=== PATIENT | male | born 1995 | race Hispanic/Latino ===

== ENCOUNTER 2018-02-17 07:59 | Emergency (ER) | payer SELFPAY ==
[2018-02-17] MEDS ORDERED: IBUPROFEN 400 MG TAB ONE (09:12)
--- NOTE | 2018-02-17 10:32 | ER ---
Nurse's Notes [facility] Name: Casper Lee Age: 22 yrs Sex: Male : 1995 Arrival Date: 02/17/2018 Time: 08:02 Bed 19 Private MD: Diagnosis: Pain in left hand Presentation: 02/17 08:07 Presenting complaint: Patient states: L hand pain that began yesterday. No known ss injury. Transition of care: patient was not received from another setting of care. Onset of symptoms was February 16, 2018. Risk Assessment: Do you want to hurt yourself or someone else? Patient reports no desire to harm self or others. Initial Sepsis Screen: Does the patient meet any 2 criteria? No. Patient's initial sepsis screen is negative. Does the patient have a suspected source of infection? No. Patient's initial sepsis screen is negative. Care prior to arrival: None. 08:07 Method Of Arrival: Ambulatory ss 08:07 Acuity: DARLENE 4 ss Historical: - Allergies: 08:10 No Known Allergies; ss - Home Meds: 08:10 None [Active]; ss - PMHx: 08:10 None; ss - PSHx: 08:10 None; ss - Immunization history:: Adult Immunizations unknown. - Social history:: Smoking status: Patient uses tobacco products, smokes one-half pack cigarettes per day. - Ebola Screening: : Patient denies exposure to infectious person Patient denies travel to an Ebola-affected area in the 21 days before illness onset. Screenin:00 Abuse screen: Denies threats or abuse. Nutritional screening: No deficits noted. em Tuberculosis screening: No symptoms or risk factors identified. Fall Risk None identified. Assessment: 09:00 General: Appears in no apparent distress. comfortable, Behavior is calm, cooperative, em Denies fever. Pain: Complains of pain in medial aspect of left hand Pain currently is 6 out of 10 on a pain scale. Neuro: Level of Consciousness is awake, alert, obeys commands, Oriented to person, place, time, situation. Cardiovascular: Capillary refill < 3 seconds Patient's skin is warm and dry. Respiratory: Airway is patent Respiratory effort is even, unlabored, Respiratory pattern is regular, symmetrical. Derm: Skin is intact, is healthy with good turgor, Skin is pink, warm \T\ dry. Musculoskeletal: Range of motion: intact in MCP of left little finger Swelling absent. Vital Signs: 08:10 BP 146 / 105; Pulse 61; Resp 16; Temp 97.6(TE); Pulse Ox 99% on R/A; Weight 86.18 kg; ss Height 6 ft. 2 in. (187.96 cm); Pain 7/10; 08:10 BP 154 / 113; Pulse 62; ss 10:15 BP 130 / 91; Pulse 67; Resp 16; Pulse Ox 99% on R/A; Pain 2/10; em 08:10 Body Mass Index 24.39 (86.18 kg, 187.96 cm) ED Course: 08:02 Patient arrived in ED. as 08:09 Triage completed. ss 08:10 Arm band placed on right wrist. ss 08:44 Neema Chauhan FNP-C is PHCP. kb 08:44 Sony Knox MD is Attending Physician. kb 09:00 Romain Oshea LVN is Primary Nurse. em 09:00 Patient has correct armband on for positive identification. Bed in low position. Call em light in reach. Side rails up X2. Adult w/ patient. Pulse ox on. NIBP on. 09:47 Hand Left 3 View In Process Unspecified. EDMS 10:40 No provider procedures requiring assistance completed. Patient did not have IV access em during this emergency room visit. Administered Medications: 09:05 Drug: Ibuprofen 800 mg Route: PO; em 10:27 Follow up: Response: No adverse reaction; Pain is decreased em Outcome: 10:31 Discharge ordered by MD. kb 10:40 Discharged to home ambulatory, with family. em 10:40 Condition: good 10:40 Discharge instructions given to patient, Instructed on discharge instructions, follow up and referral plans. Demonstrated understanding of instructions, follow-up care, Prescriptions given X 1. 10:41 Patient left the ED. em Signatures: Dispatcher [employer] EDMS Neema Chauhan FNP-C FNP-Ckb Munoz, Edgar, LVN LVN em Sonia Hammond Shelby, RN RN ss
--- NOTE | 2018-02-17 10:32 | EDPHYS ---
Physician Documentation [facility] Name: Casper Lee Age: 22 yrs Sex: Male : 1995 Arrival Date: 02/17/2018 Time: 08:02 Bed 19 Private MD: ED Physician Sony Knox HPI: 02/17 09:13 This 22 yrs old Male presents to ER via Ambulatory with complaints of Hand kb Pain. 09:13 The patient or guardian reports pain. The complaints affect the medial aspect of left kb hand. Context: The problem was sustained at home, resulted from an unknown cause. Onset: The symptoms/episode began/occurred 2 day(s) ago. Modifying factors: The symptoms are alleviated by nothing, the symptoms are aggravated by nothing. Associated signs and symptoms: The patient has no apparent associated signs or symptoms. Severity of symptoms: At their worst the symptoms were moderate, in the emergency department the symptoms are unchanged. The patient has not experienced similar symptoms in the past. The patient has not recently seen a physician. Historical: - Allergies: 08:10 No Known Allergies; ss - Home Meds: 08:10 None [Active]; ss - PMHx: 08:10 None; ss - PSHx: 08:10 None; ss - Immunization history:: Adult Immunizations unknown. - Social history:: Smoking status: Patient uses tobacco products, smokes one-half pack cigarettes per day. - Ebola Screening: : Patient denies exposure to infectious person Patient denies travel to an Ebola-affected area in the 21 days before illness onset. ROS: 09:12 Constitutional: Negative for fever, chills, and weight loss, Cardiovascular: Negative kb for chest pain, palpitations, and edema, Respiratory: Negative for shortness of breath, cough, wheezing, and pleuritic chest pain, Abdomen/GI: Negative for abdominal pain, nausea, vomiting, diarrhea, and constipation, Skin: Negative for injury, rash, and discoloration, Neuro: Negative for headache, weakness, numbness, tingling, and seizure. 09:12 MS/extremity: Positive for pain, tenderness, of the left hand. Exam: 09:12 Constitutional: This is a well developed, well nourished patient who is awake, alert, kb and in no acute distress. Head/Face: Normocephalic, atraumatic. Neck: Trachea midline, no thyromegaly or masses palpated, and no cervical lymphadenopathy. Supple, full range of motion without nuchal rigidity, or vertebral point tenderness. No Meningismus. Chest/axilla: Normal chest wall appearance and motion. Nontender with no deformity. No lesions are appreciated. Cardiovascular: Regular rate and rhythm with a normal S1 and S2. No gallops, murmurs, or rubs. Normal PMI, no JVD. No pulse deficits. Respiratory: Lungs have equal breath sounds bilaterally, clear to auscultation and percussion. No rales, rhonchi or wheezes noted. No increased work of breathing, no retractions or nasal flaring. Abdomen/GI: Soft, non-tender, with normal bowel sounds. No distension or tympany. No guarding or rebound. No evidence of tenderness throughout. Skin: Warm, dry with normal turgor. Normal color with no rashes, no lesions, and no evidence of cellulitis. MS/ Extremity: Pulses equal, no cyanosis. Neurovascular intact. Full, normal range of motion. Neuro: Awake and alert, GCS 15, oriented to person, place, time, and situation. Cranial nerves II-XII grossly intact. Motor strength 5/5 in all extremities. Sensory grossly intact. Cerebellar exam normal. Normal gait. Vital Signs: 08:10 BP 146 / 105; Pulse 61; Resp 16; Temp 97.6(TE); Pulse Ox 99% on R/A; Weight 86.18 kg; ss Height 6 ft. 2 in. (187.96 cm); Pain 7/10; 08:10 BP 154 / 113; Pulse 62; ss 10:15 BP 130 / 91; Pulse 67; Resp 16; Pulse Ox 99% on R/A; Pain 2/10; em 08:10 Body Mass Index 24.39 (86.18 kg, 187.96 cm) ss MDM: 08:44 Patient medically screened. kb 09:12 Data reviewed: vital signs, nurses notes. Data interpreted: Pulse oximetry: on room air kb is 99 %. Interpretation: normal. Counseling: I had a detailed discussion with the patient and/or guardian regarding: the historical points, exam findings, and any diagnostic results supporting the discharge/admit diagnosis, radiology results, the need for outpatient follow up, a hand specialist, to return to the emergency department if symptoms worsen or persist or if there are any questions or concerns that arise at home. 02/17 09:26 Order name: Hand Left 3 View; Complete Time: 11:26 [facility] Administered Medications: 09:05 Drug: Ibuprofen 800 mg Route: PO; em 10:27 Follow up: Response: No adverse reaction; Pain is decreased em Disposition: 17:21 Co-signature as Attending Physician, Sony Knox MD. Disposition: 02/17/18 10:31 Discharged to Home. Impression: Pain in left hand. - Condition is Stable. - Discharge Instructions: Musculoskeletal Pain. - Prescriptions for Diclofenac Sodium 75 mg Oral Tablet, Delayed Release (E.C.) - take 1 tablet by ORAL route 2 times per day As needed; 30 tablet. - Medication Reconciliation Form, Thank You Letter, Antibiotic Education, Prescription Opioid Use form. - Follow up: Emergency Department; When: As needed; Reason: Worsening of condition. Follow up: Private Physician; When: 2 - 3 days; Reason: Recheck today's complaints, Continuance of care, Re-evaluation by your physician. Signatures: Dispatcher [employer] [facility] Neema Chauhan, TRACKLESS TROLLEY DRIVER-C TRACKLESS TROLLEY DRIVER-CkRomain Saavedra, FIRE ALARM DISPATCHER FIRE ALARM DISPATCHER Lynda Prajapati RN RN ss Starr, Gregory, MD MD Corrections: (The following items were deleted from the chart) 09:47 09:41 Hand Left 3 View+RAD.RAD.BRZ ordered. [facility] 10:41 10:31 02/17/2018 10:31 Discharged to Home. Impression: Pain in left hand. Condition is em Stable. Forms are Medication Reconciliation Form, Thank You Letter, Antibiotic Education, Prescription Opioid Use. Follow up: Emergency Department; When: As needed; Reason: Worsening of condition. Follow up: Private Physician; When: 2 - 3 days; Reason: Recheck today's complaints, Continuance of care, Re-evaluation by your physician. kb
--- NOTE | 2018-02-17 11:19 | RAD REPORT ---
EXAM DESCRIPTION: RAD - Hand Left 3 View - 02/17/2018 9:47 am CLINICAL HISTORY: Nontraumatic, nonfocal hand pain COMPARISON: December 2013 FINDINGS: No fracture, dislocation or periosteal reaction noted. No foreign body or other soft tissu e abnormality. Slight cortical irregularity base of the fourth metacarpal could be the sequela of old trauma. This is similar in appearance to the prior study. IMPRESSION: Negative left hand examination.
== END 2018-02-17 10:41 | disposition home or self-care (01) ==
LOC: ER 07:59
DX: M79.642 Pain in left hand (principal); F17.210 Nicotine dependence, cigarettes, uncomplicated
CPT/HCPCS: 99284

== ENCOUNTER 2018-03-05 00:29 | Emergency (ER) | payer SELFPAY ==
[2018-03-05] MEDS ORDERED: NA CHLORIDE 0.9% 1,000 ML ONE (00:57)
[2018-03-05] MEDS ORDERED: LORAZEPAM 1 MG TABLET ONE (00:57)
[2018-03-05 01:32] LABS: Absolute Lymphocytes (CBC) 4.1 K/uL (0.7-4.9); Absolute Monocytes 0.8 K/uL (0.1-1.3); Absolute Neutrophil 6.7 K/uL (1.8-8.0); Basophils % 0.6 % (0-1.3); Lymphocytes % 35.1 % (15.3-44.8); MPV 8.9 fL (7.6-11.3); Monocytes % 6.8 % (3.3-12.3); RBC Red Blood Cell Count 4.88 M/uL (4.33-5.43)
[2018-03-05 01:46] LABS: BUN Blood Urea Nitrogen 13 mg/dL (7-18); Bicarbonate 23 mmol/L (21-32); Creatine Phosphokinase 224 U/L (39-308); Glucose Level 99 mg/dL (74-106); Potassium 3.5 mmol/L (3.5-5.1); Sodium Level 138 mmol/L (136-145); Troponin (Emerg Dept Use Only) < 0.02 ng/mL (0.0-0.045)
--- NOTE | 2018-03-05 02:32 | EDPHYS ---
Physician Documentation [facility] Name: Casper Lee Age: 22 yrs Sex: Male : 1995 Arrival Date: 03/05/2018 Time: 00:31 Bed 17 Private MD: ED Physician Darion Figueroa HPI: 03/05 01:33 This 22 yrs old Male presents to ER via Ambulatory with complaints of Chest snw Pain, Breathing Difficulty. 01:33 The patient or guardian reports chest pain that is located primarily in the substernal snw area. The pain does not radiate. Associated signs and symptoms: Pertinent positives: lightheadedness, palpitations, shortness of breath. The chest pain is described as clutching. Duration: The patient or guardian reports a single episode. Severity of pain: At its worst the pain was severe. The patient has not experienced similar symptoms in the past. It is unknown whether or not the patient has recently seen a physician. Historical: - Allergies: 00:44 No Known Allergies; la1 - PMHx: 00:44 None; la1 - Immunization history:: Adult Immunizations up to date. - Social history:: Smoking status: Patient uses tobacco products, smokes one-half pack cigarettes per day. - Ebola Screening: : No symptoms or risks identified at this time. ROS: 01:32 Eyes: Negative for injury, pain, redness, and discharge, ENT: Negative for injury, snw pain, and discharge, Neck: Negative for injury, pain, and swelling. 01:32 Abdomen/GI: Negative for abdominal pain, nausea, vomiting, diarrhea, and constipation, Back: Negative for injury and pain, : Negative for injury, bleeding, discharge, and swelling. 01:32 Skin: Negative for injury, rash, and discoloration, Neuro: Negative for headache, weakness, numbness, tingling, and seizure, Psych: Negative for depression, anxiety, suicide ideation, homicidal ideation, and hallucinations. 01:32 Constitutional: Positive for body aches, malaise, poor PO intake. 01:32 Cardiovascular: Positive for chest pain, palpitations. 01:32 Respiratory: Positive for shortness of breath. 01:32 MS/extremity: Positive for paresthesias, and numbness to arms. Exam: 01:30 Head/Face: Normocephalic, atraumatic. Eyes: Pupils equal round and reactive to light, snw extra-ocular motions intact. Lids and lashes normal. Conjunctiva and sclera are non-icteric and not injected. Cornea within normal limits. Periorbital areas with no swelling, redness, or edema. ENT: Nares patent. No nasal discharge, no septal abnormalities noted. Tympanic membranes are normal and external auditory canals are clear. Oropharynx with no redness, swelling, or masses, exudates, or evidence of obstruction, uvula midline. Mucous membranes moist. Neck: Trachea midline, no thyromegaly or masses palpated, and no cervical lymphadenopathy. Supple, full range of motion without nuchal rigidity, or vertebral point tenderness. No Meningismus. Chest/axilla: Normal chest wall appearance and motion. Nontender with no deformity. No lesions are appreciated. 01:30 Abdomen/GI: Soft, non-tender, with normal bowel sounds. No distension or tympany. No guarding or rebound. No evidence of tenderness throughout. Back: No spinal tenderness. No costovertebral tenderness. Full range of motion. Skin: Warm, dry with normal turgor. Normal color with no rashes, no lesions, and no evidence of cellulitis. MS/ Extremity: Pulses equal, no cyanosis. Neurovascular intact. Full, normal range of motion. Neuro: Awake and alert, GCS 15, oriented to person, place, time, and situation. Cranial nerves II-XII grossly intact. Motor strength 5/5 in all extremities. Sensory grossly intact. Cerebellar exam normal. Normal gait. hyperventilating 01:30 Constitutional: The patient appears alert, anxious, restless, uncomfortable. 01:30 Cardiovascular: Rate: tachycardic, Heart sounds: normal. 01:30 Respiratory: the patient does not display signs of respiratory distress, Respirations: tachypnea, Breath sounds: are clear throughout, no bronchial sounds, no decreased breath sounds, no rales, rhonchi, no stridor. 01:30 Psych: Behavior/mood is frightened. Affect is animated, Oriented to person, place, time, Patient has no thoughts/intents to harm self or others. Vital Signs: 00:44 BP 150 / 90; Pulse 114; Resp 18; Pulse Ox 98% on R/A; la1 01:00 BP 152 / 99; Pulse 110; Resp 23; Pulse Ox 99% ; rr5 01:30 BP 143 / 97; Pulse 84; Resp 22; Pulse Ox 99% ; rr5 02:00 BP 144 / 87; Pulse 98; Resp 16; Pulse Ox 100% on R/A; rr5 03:00 BP 125 / 81; Pulse 89; Resp 16; Pulse Ox 99% ; rr5 MDM: 00:38 Patient medically screened. [facility] 02:16 Data reviewed: vital signs, nurses notes. Data interpreted: Pulse oximetry: on room air snw is 100 %. Interpretation: normal. Counseling: I had a detailed discussion with the patient and/or guardian regarding: the historical points, exam findings, and any diagnostic results supporting the discharge/admit diagnosis, lab results, the need for outpatient follow up, for definitive care. 03/05 00:44 Order name: CBC with Diff; Complete Time: 01:41 snw 03/05 00:44 Order name: Chem 7; Complete Time: 01:54 snw 03/05 00:44 Order name: CK; Complete Time: 01:54 snw 03/05 00:44 Order name: Troponin (emerg Dept Use Only); Complete Time: 01:54 snw 03/05 02:17 Order name: Chest Single View XRAY snw 03/05 01:55 Order name: Recheck VS; Complete Time: 02:16 snw Administered Medications: 00:59 Drug: Ativan 1 mg Route: PO; rr5 03:04 Follow up: Response: No adverse reaction rr5 00:59 Drug: NS 0.9% 1000 ml Route: IV; Rate: 1000 ml; Site: right forearm; rr5 02:15 Follow up: Response: No adverse reaction; IV Status: Completed infusion; IV Intake: rr5 1000ml Disposition: 07:02 Co-signature as Attending Physician, Darion Figueroa MD I agree with the assessment and [facility] plan of care. Disposition: 03/05/18 02:31 Discharged to Home. Impression: Dehydration, Chest pain, unspecified, Panic attack. - Condition is Stable. - Discharge Instructions: Panic Attacks, Nonspecific Chest Pain, Dehydration, Adult, Hypertension, Steps to Quit Smoking, Rehydration, Adult, Drug Toxicity. - Work release form, Medication Reconciliation Form, Thank You Letter, Antibiotic Education, Prescription Opioid Use form. - Follow up: Private Physician; When: 2 - 3 days; Reason: Recheck today's complaints, Continuance of care, Re-evaluation by your physician. Follow up: Emergency Department; When: As needed; Reason: Worsening of condition. Signatures: Dispatcher [employer] EDMS Darion Figueroa MD MD cha Therrien, Shelly, WAREHOUSE HAND-C WAREHOUSE HAND-Csnw Ryan Hoffman RN RN la1 Osvaldo Lowe RN RN rr5 Corrections: (The following items were deleted from the chart) 03:05 02:31 03/05/2018 02:31 Discharged to Home. Impression: Dehydration; Chest pain, rr5 unspecified; Panic attack. Condition is Stable. Forms are Medication Reconciliation Form, Thank You Letter, Antibiotic Education, Prescription Opioid Use. Follow up: Private Physician; When: 2 - 3 days; Reason: Recheck today's complaints, Continuance of care, Re-evaluation by your physician. Follow up: Emergency Department; When: As needed; Reason: Worsening of condition. snw
--- NOTE | 2018-03-05 02:32 | ER ---
Nurse's Notes [facility] Name: Casper Lee Age: 22 yrs Sex: Male : 1995 Arrival Date: 03/05/2018 Time: 00:31 Bed 17 Private MD: Diagnosis: Dehydration;Chest pain, unspecified;Panic attack Presentation: 03/05 00:42 Presenting complaint: Patient states: I started having chest pain and shortness of la1 breath about 20 minutes ago while I was watching TV with my girlfriend. 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 Transition of care: patient was not received from another setting of care. Onset of symptoms was March 05, 2018. Risk Assessment: Do you want to hurt yourself or someone else? Patient reports no desire to harm self or others. Initial Sepsis Screen: Does the patient meet any 2 criteria? Yes Does the patient have a suspected source of infection? No. Patient's initial sepsis screen is negative. Care prior to arrival: None. 00:42 Method Of Arrival: Ambulatory la1 00:42 Acuity: DARLENE 3 la1 Historical: - Allergies: 00:44 No Known Allergies; la1 - PMHx: 00:44 None; la1 - Immunization history:: Adult Immunizations up to date. - Social history:: Smoking status: Patient uses tobacco products, smokes one-half pack cigarettes per day. - Ebola Screening: : No symptoms or risks identified at this time. Screenin:00 Abuse screen: Denies threats or abuse. Denies injuries from another. Nutritional rr5 screening: No deficits noted. Tuberculosis screening: No symptoms or risk factors identified. Fall Risk IV access (20 points). Total Shafer Fall Scale indicates No Risk (0-24 pts). Assessment: 00:45 General: Appears uncomfortable, Behavior is restless. rr5 00:45 Pain: Complains of pain in chest Pain does not radiate. Pain currently is 6 out of 10 rr5 on a pain scale. Quality of pain is described as aching, Pain began gradually, Is intermittent. Neuro: Level of Consciousness is awake, alert, obeys commands, Oriented to person, place, time, situation, Appropriate for age. Cardiovascular: Capillary refill < 3 seconds Patient's skin is warm and dry. Rhythm is sinus tachycardia. Respiratory: Reports Airway is patent Respiratory effort is even, unlabored, Respiratory pattern is regular, symmetrical. GI: No signs and/or symptoms were reported involving the gastrointestinal system. : No signs and/or symptoms were reported regarding the genitourinary system. EENT: No signs and/or symptoms were reported regarding the EENT system. Derm: Skin is intact, Skin temperature is warm. Musculoskeletal: Capillary refill < 3 seconds, Range of motion: intact in all extremities. 01:15 Reassessment: Patient appears in no apparent distress at this time. awaiting for rr5 reports. encouraged to relax and control his breathing. Patient states symptoms have improved. 02:14 Reassessment: Patient appears in no apparent distress at this time. 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 no complaints made. Patient states feeling better. Patient states symptoms have improved. 03:00 Reassessment: Patient appears in no apparent distress at this time. Patient is alert, rr5 oriented x 3, equal unlabored respirations, skin warm/dry/pink. discharge instruction given and explained without complaints made. Patient states feeling better. Patient states symptoms have improved. Vital Signs: 00:44 BP 150 / 90; Pulse 114; Resp 18; Pulse Ox 98% on R/A; la1 01:00 BP 152 / 99; Pulse 110; Resp 23; Pulse Ox 99% ; rr5 01:30 BP 143 / 97; Pulse 84; Resp 22; Pulse Ox 99% ; rr5 02:00 BP 144 / 87; Pulse 98; Resp 16; Pulse Ox 100% on R/A; rr5 03:00 BP 125 / 81; Pulse 89; Resp 16; Pulse Ox 99% ; rr5 ED Course: 00:31 Patient arrived in ED. es 00:38 Ludivina Gilmore FNP-C is PHCP. snw 00:38 Darion Figueroa MD is Attending Physician. snw 00:44 Triage completed. la1 00:44 Arm band placed on left wrist. la1 00:45 Patient has correct armband on for positive identification. Placed in gown. Bed in low rr5 position. Call light in reach. Side rails up X2. hall monitor on. Pulse ox on. NIBP on. 00:55 Inserted saline lock: 20 gauge in right forearm, using aseptic technique. Blood rr5 collected. 00:55 No provider procedures requiring assistance completed. Patient maintains SpO2 rr5 saturation greater than 95% on room air. 02:08 Osvaldo Lowe, RN is Primary Nurse. rr5 02:27 X-ray completed. Portable x-ray completed in exam room. Patient tolerated procedure tm4 well. 02:28 Chest Single View XRAY In Process Unspecified. EDMS 03:00 IV discontinued, intact, bleeding controlled, No redness/swelling at site. Pressure rr5 dressing applied. Administered Medications: 00:59 Drug: Ativan 1 mg Route: PO; rr5 03:04 Follow up: Response: No adverse reaction rr5 00:59 Drug: NS 0.9% 1000 ml Route: IV; Rate: 1000 ml; Site: right forearm; rr5 02:15 Follow up: Response: No adverse reaction; IV Status: Completed infusion; IV Intake: rr5 1000ml Intake: 02:15 IV: 1000ml; Total: 1000ml. rr5 Outcome: 02:31 Discharge ordered by . snlakeshia 03:00 Discharged to home ambulatory, with friend. rr5 03:00 Condition: stable 03:00 Discharge instructions given to patient, Instructed on discharge instructions, follow up and referral plans. Demonstrated understanding of instructions, follow-up care. 03:05 Patient left the ED. rr5 Signatures: Dispatcher [employer] Ludivina Parmar, CHEF GERMAN-C CHEF GERMAN-CsnYaa Stevens Tracy tm4 Ryan Hoffman RN RN la1 Osvaldo Lowe, RN RN rr5
--- NOTE | 2018-03-05 08:40 | RAD REPORT ---
EXAM DESCRIPTION: RAD - Chest Single View - 03/05/2018 2:28 am CLINICAL HISTORY: CHEST PAIN Chest pain. COMPARISON: No comparisons FINDINGS: Portable technique limits examination quality. The lungs are grossly clear. The heart is normal in size. No displaced fractures. IMPRESSION: No acute intrathoracic process suspected.
--- NOTE | 2018-03-05 20:52 | EKG ---
Test Date: 2018-03-05 Test Time: 00:37:45 [employer] Mdm Architect: LA MEASUREMENT RESULTS: Intervals: Rate: 98 MO: 148 QRSD: 90 QT: 338 QTc: 431 [place]: P: 70 MO: 148 QRS: 90 T: -26 INTERPRETIVE STATEMENTS: Normal sinus rhythm Rightward axis T wave abnormality, consider inferolateral ischemia Abnormal ECG No previous ECG available for comparison Electronically Signed On 03-05-18 20:48:15 MINE DEPUTY by Fernando Austin
== END 2018-03-05 03:05 | disposition home or self-care (01) ==
LOC: ER 00:29
DX: R07.9 Chest pain, unspecified (principal); E86.0 Dehydration; F41.0 Panic disorder [episodic paroxysmal anxiety]; F17.210 Nicotine dependence, cigarettes, uncomplicated
CPT/HCPCS: 36415; 71045; 80048; 82550; 84484; 85025; 93005; 96360; 99285; J7030

== ENCOUNTER 2022-01-17 11:24 | Emergency (ER) | payer SELFPAY ==
[2022-01-17] MEDS ORDERED: dexAMETHasone 10 MG/ML VIAL ONE (11:44)
[2022-01-17] MEDS ORDERED: KETOROLAC 30 MG/ML INJ ONE (11:44)
--- NOTE | 2022-01-17 12:15 | EDPHYS ---
Physician Documentation [facility] Name: Casper Lee Age: 26 yrs Sex: Male : 1995 Arrival Date: 01/17/2022 Time: 11:27 Bed IW2 Private MD: ED Physician Markos Munoz HPI: 01/17 12:11 This 26 yrs old Male presents to ER via Ambulatory with complaints of Low Back jmm Pain. 12:11 The patient presents with pain that is acute. Onset: The symptoms/episode jmm began/occurred acutely, 1 day(s) ago. This is a 26 year old male with no chronic medical conditions that presents to the ED with complaints of lower back pain which radiates into his right leg. Denies bowel or bladder issures/ Denies numbness or weakness. . Historical: - Allergies: 11:36 No Known Allergies; ap3 - Home Meds: 11:36 None [Active]; ap3 - PMHx: 11:36 None; ap3 - PSHx: 11:36 None; ap3 - Immunization history:: Client reports having NOT received the Covid vaccine. Flu vaccine is not up to date. - Social history:: Smoking status: Reported history of juuling and/or vaping. ROS: 12:11 Constitutional: Negative for fever, chills, and weight loss, Cardiovascular: Negative jmm for chest pain, palpitations, and edema, Respiratory: Negative for shortness of breath, cough, wheezing, and pleuritic chest pain. 12:11 Back: Positive for pain with movement. 12:11 All other systems are negative. Exam: 12:11 Constitutional: This is a well developed, well nourished patient who is awake, alert, jmm and in no acute distress. Head/Face: atraumatic. Eyes: EOMI, no conjunctival erythema appreciated ENT: Moist Mucus Membranes Neck: Trachea midline, Supple Chest/axilla: Normal chest wall appearance and motion. Cardiovascular: Regular rate and rhythm. No edema appreciated Respiratory: Normal respirations, no respiratory distress appreciated Abdomen/GI: Non distended 12:11 Back: pain on rom, no midline tenderness. 12:11 Musculoskeletal/extremity: ROM: intact in all extremities. 12:11 Neuro: extensor hallucis longus intact bilaterally. 12:11 Psych: Behavior/mood is pleasant, cooperative. Vital Signs: 11:34 BP 147 / 96; Pulse 88; Resp 17; Temp 98.7(O); Pulse Ox 100% ; Weight 113.4 kg; Height 6 ap3 ft. 2 in. (187.96 cm); Pain 8/10; 11:34 Body Mass Index 32.10 (113.40 kg, 187.96 cm) ap3 MDM: 11:44 Patient medically screened. [facility] 12:13 Data reviewed: vital signs, nurses notes. Counseling: I had a detailed discussion with [facility] the patient and/or guardian regarding: the historical points, exam findings, and any diagnostic results supporting the discharge/admit diagnosis, the need for outpatient follow up, to return to the emergency department if symptoms worsen or persist or if there are any questions or concerns that arise at home. ED course: I do not suspect cord compression or cauda equina. Patient advised to follow up with pcp and otherwise given strict return precautions. Patient understood and agrees with the plan of care. . Administered Medications: 11:47 Drug: Decadron (dexamethasone) 10 mg Route: IM; Site: left gluteus; ap3 11:48 Drug: Ketorolac 30 mg Route: IM; Site: left gluteus; ap3 Disposition: 18:22 Co-signature as Attending Physician, Markos Munoz DO I was immediately available onsite ms3 in the emergency department for consultation in the care of the patient. Disposition Summary: 01/17/22 12:14 Discharge Ordered Location: Home [facility] Condition: Stable [facility] Diagnosis - Sciatica, right side [facility] Followup: [facility] - With: Private Physician - When: 2 - 3 days - Reason: Recheck today's complaints, Continuance of care, Re-evaluation by your physician Discharge Instructions: - Discharge Summary Sheet [facility] - Sciatica Rehab-SportsMed [facility] Forms: - Medication Reconciliation Form [facility] - Work release form [facility] - Thank You Letter [facility] - Antibiotic Education [facility] - Prescription Opioid Use [facility] Prescriptions: - Diclofenac Sodium 75 mg Oral Tablet Sustained Release - take 1 tablet by ORAL route 2 times per day; 30 tablet; Refills: 0, Product [facility] Selection Permitted - orphenadrine citrate 100 mg Oral Tablet Sustained Release - take 1 tablet by ORAL route 2 times per day As needed; 20 tablet; Refills: 0, [facility] Product Selection Permitted Signatures: Chris Hoover PA PA jmm Prokisch, Amanda, RN RN ap3 Markos Munoz DO DO ms3
--- NOTE | 2022-01-17 12:15 | ER ---
Nurse's Notes [facility] Name: Casper Lee Age: 26 yrs Sex: Male : 1995 Arrival Date: 01/17/2022 Time: 11:27 Bed IW2 Private MD: Diagnosis: Sciatica, right side Presentation: 01/17 11:34 Chief complaint: Patient states: he has had low back pain that be believes to be ap3 sciatica issues for approx 2 years. patient states that he feels the pain has gotten worse since yesterday after he was more active that normal. Coronavirus screen: At this time, the client does not indicate any symptoms associated with coronavirus-19. Ebola Screen: No symptoms or risks identified at this time. Initial Sepsis Screen: Does the patient meet any 2 criteria? No. Patient's initial sepsis screen is negative. Does the patient have a suspected source of infection? No. Patient's initial sepsis screen is negative. Risk Assessment: Do you want to hurt yourself or someone else? Patient reports no desire to harm self or others. Onset of symptoms is unknown. 11:34 Method Of Arrival: Ambulatory ap3 11:34 Acuity: DARLENE 4 ap3 Triage Assessment: 11:36 General: Appears in no apparent distress. Behavior is calm, cooperative. Pain: ap3 Complains of pain in low back area Pain radiates to right leg and left leg. Neuro: Level of Consciousness is awake, alert, obeys commands, Oriented to person, place, time, Reports. Cardiovascular: Patient's skin is warm and dry. Respiratory: Airway is patent Respiratory effort is even, unlabored, Respiratory pattern is regular, symmetrical. Historical: - Allergies: 11:36 No Known Allergies; ap3 - Home Meds: 11:36 None [Active]; ap3 - PMHx: 11:36 None; ap3 - PSHx: 11:36 None; ap3 - Immunization history:: Client reports having NOT received the Covid vaccine. Flu vaccine is not up to date. - Social history:: Smoking status: Reported history of juuling and/or vaping. Screenin:37 Abuse screen: Denies threats or abuse. Nutritional screening: No deficits noted. ap3 Tuberculosis screening: No symptoms or risk factors identified. 12:46 Fall Risk No fall in past 12 months (0 pts). ap3 Vital Signs: 11:34 BP 147 / 96; Pulse 88; Resp 17; Temp 98.7(O); Pulse Ox 100% ; Weight 113.4 kg; Height 6 ap3 ft. 2 in. (187.96 cm); Pain 8/10; 11:34 Body Mass Index 32.10 (113.40 kg, 187.96 cm) ap3 ED Course: 11:27 Patient arrived in ED. rg4 11:29 Chris Hoover PA is PHCP. angie 11:29 Markos Munoz DO is Attending Physician. jmm 11:36 Triage completed. ap3 11:37 Arm band placed on right wrist. ap3 12:46 Patient has correct armband on for positive identification. ap3 12:46 No provider procedures requiring assistance completed. Patient did not have IV access ap3 during this emergency room visit. Administered Medications: 11:47 Drug: Decadron (dexamethasone) 10 mg Route: IM; Site: left gluteus; ap3 11:48 Drug: Ketorolac 30 mg Route: IM; Site: left gluteus; ap3 Medication: 12:46 VIS not applicable for this client. ap3 Outcome: 12:14 Discharge ordered by MD. [place] 12:46 Discharged to home ambulatory. ap3 12:46 Condition: good 12:46 Discharge instructions given to patient, Instructed on discharge instructions, follow up and referral plans. medication usage, Demonstrated understanding of instructions, follow-up care, medications, Prescriptions given X 2. 12:46 Patient left the ED. ap3 Signatures: Chris Hoover PA PA jmm Garcia, Rubi rg4 Swati Arriaza, RN RN ap3
[2022-01-17 13:08] VITALS: BP 147/96; TEMP 98.7; O2SAT 100
== END 2022-01-17 12:46 | disposition home or self-care (01) ==
LOC: ER 11:24
DX: M54.31 Sciatica, right side (principal)
CPT/HCPCS: 96372; 99283; J1100